=== PATIENT | female | born 1940 | race Hispanic/Latino ===

== ENCOUNTER 2023-11-14 10:09 | Inpatient (IN) | payer OTHER ==
[~2023-11-14] VITALS: Ht 152.4 cm; Wt 62.1 kg
[2023-11-14 11:00] LABS: BASOPHILS # (AUTO) 0.01 K/uL (0.00-0.20); BASOPHILS % (AUTO) 0.2 % (0.0-5.0); EOSINOPHILS # (AUTO) 0.02 K/uL (0.00-0.70); EOSINOPHILS % (AUTO) 0.3 % (0.0-8.0); HEMATOCRIT 35.5 % (36-48); IMMATURE GRANULOCYTE ABSOLUTE 0.04 K/uL (0-1); LYMPHOCYTES # (AUTO) 0.9 K/uL (1.0-4.8); LYMPHOCYTES % (AUTO) 14.8 % (21.0-51.0); MEAN CORPUSCULAR HEMOGLOBIN 31.7 pg (27.0-33.0); MEAN CORPUSCULAR HGB CONC 32.7 g/dL (32.0-36.0); MONOCYTES # (AUTO) 0.6 K/uL (0.1-1.0); MONOCYTES % (AUTO) 10.4 % (3.0-13.0); NEUTROPHILS # (AUTO) 4.4 K/uL (1.8-7.7); NEUTROPHILS % (AUTO) 73.6 % (40.0-77.0); PLATELET COUNT (AUTO) 301 K/uL (130-400); RED BLOOD CELL COUNT(AUTO) 3.66 MIL/uL (4.00-5.50); WHITE BLOOD COUNT (AUTO) 5.9 K/uL (4.8-10.8)
[2023-11-14 11:10] LABS: CREATININE 1.1 mg/dL (0.5-1.5); POTASSIUM 4.1 mmol/L (3.5-5.1)
[2023-11-14 11:14] LABS: ALBUMIN 3.9 g/dL (3.5-5.0); BILIRUBIN,TOTAL 0.4 mg/dL (0.2-1.0); MAGNESIUM 1.7 mg/dL (1.80-2.40); TOTAL PROTEIN, SERUM 7.4 g/dL (6.0-8.3)
[2023-11-14 11:32] LABS: INR <= 0.93 (0.85-1.15); PROTHROMBIN TIME 10.7 SEC (9.6-11.6)
[2023-11-14 11:33] LABS: PARTIAL THROMBOPLASTIN TIME 26.3 SEC (26.3-35.5)
[2023-11-14] MEDS: HYDRALAZINE 20MG/ML VIAL IV ONE ×2 (11:48→12:59)
[2023-11-14] MEDS: MAGNESIUM OXIDE 400 MG TABLET PO ONE (13:19)
[2023-11-14 14:40] LABS: THYROID STIMULATING HORMONE 0.6 uIU/mL (0.36-3.74)
[2023-11-14] MEDS: ONDANSETRON 4MG INJ IVP ONE (16:00)
[2023-11-14] MEDS: ONDANSETRON 4MG INJ ONE (16:01)
[2023-11-14] MEDS ORDERED: DOCUSATE SODIUM 100 MG CAP PO PRN (17:00)
[2023-11-14] MEDS ORDERED: POTASSIUM CHLORIDE 10% ELIXIR 20 MEQ/15 ML UDCUP PO PRN (17:00)
[2023-11-14] MEDS ORDERED: ALPRAZOLAM 0.5 MG TABLET PO PRN (17:00)
[2023-11-14] MEDS ORDERED: POTASSIUM CHLORIDE 20MEQ/100ML 100 ML IV PRN ×2 (17:00)
[2023-11-14] MEDS ORDERED: ACETAMINOPHEN 325 MG TAB PO PRN ×2 (17:00)
[2023-11-14] MEDS ORDERED: HYDRALAZINE 25MG TABLET PO PRN (17:00)
[2023-11-14] MEDS ORDERED: NITROGLYCERIN 0.4 MG SL TAB SL PRN (17:00)
[2023-11-14] MEDS ORDERED: GUAIFENESIN SUGAR-FREE 100 MG/5 ML UDCUP PO PRN (17:00)
[2023-11-14] MEDS ORDERED: POLYETHYLENE GLYCOL 3350 17 GM POWD.PACK PO PRN (17:00)
[2023-11-14] MEDS ORDERED: KCL 20 MEQ ERTAB PO PRN (17:00)
[2023-11-14] MEDS ORDERED: MAG/ALUM/SIMETH 30 ML UDCUP PO PRN (17:00)
[2023-11-14] MEDS ORDERED: LABETALOL 20MG VIAL IV PRN (17:00)
[2023-11-14] MEDS ORDERED: LACTULOSE 20 GM/30 ML UDCUP PO PRN (17:00)
[2023-11-14] MEDS ORDERED: DIPHENHYDRAMINE HCL 25 MG CAPSULE PO PRN (17:00)
[2023-11-14] MEDS ORDERED: GUAIFENESIN-DM 200/20 MG 10 ML PO PRN (17:00)
[2023-11-14] MEDS ORDERED: GABA-529 PO (17:19)
[2023-11-14] MEDS ORDERED: METO25TA6 PO (17:19)
[2023-11-14] MEDS ORDERED: SIMV40TA59 PO (17:19)
[2023-11-14] MEDS ORDERED: LOSA100T59 PO (17:19)
[2023-11-14] MEDS ORDERED: TRAZ-185 PO (17:19)
[2023-11-14] MEDS ORDERED: ONDA-104 PO (17:19)
[2023-11-14] MEDS ORDERED: BACL10TA PO (17:19)
[2023-11-14] MEDS ORDERED: AMLO-257 PO (17:19)
[2023-11-14] MEDS ORDERED: SODI650T PO (17:19)
[2023-11-14 20:07] LABS: APPEARANCE,URINE CLEAR (CLEAR); BILIRUBIN,URINE NEGATIVE (NEGATIVE); COLOR,URINE LIGHT-YELLOW (YELLOW); GLUCOSE, URINE (UA) NEGATIVE (NEGATIVE); KETONES,URINE NEGATIVE (NEGATIVE); LEUKOCYTE ESTERASE ,URINE NEGATIVE Leu/uL (NEGATIVE); NITRATE,URINE NEGATIVE (NEGATIVE); OCCULT BLOOD,URINE SMALL (NEGATIVE); PROTEIN,URINE 300 mg/dL (NEGATIVE); UROBILINOGEN,URINE 0.2 mg/dL (0.2-1.0)
[2023-11-14 20:09] LABS: ADD UA MICROSCOPIC YES
[2023-11-14 20:11] LABS: MUCUS,URINE RARE LPF (None Seen)
[2023-11-14 20:21] LABS: AMPHET/METH SCREEN,URINE NEGATIVE (NEGATIVE); BARBITURATE SCREEN, URINE NEGATIVE (NEGATIVE); BENZODIAZEPINES SCREEN,URINE NEGATIVE (NEGATIVE); CANNABINOID SCREEN,URINE NEGATIVE (NEGATIVE); COCAINE SCREEN,URINE NEGATIVE (NEGATIVE); OPIATE SCREEN,URINE NEGATIVE (NEGATIVE); PHENCYCLIDINE SCREEN,URINE NEGATIVE (NEGATIVE)
[2023-11-14] MEDS: HYDRALAZINE 20MG/ML VIAL IV PRN (20:33)
[2023-11-14] MEDS: FAMOTIDINE 20MG TAB PO SCH (20:33)
[2023-11-14] MEDS: INSULIN HUMULIN R 100 UNIT/ML 3ML SQ SCH (20:58)
[2023-11-14] MEDS ORDERED: FAMOTIDINE 20MG VIAL IV PRN (21:00)
[2023-11-14] MEDS: MAGNESIUM 2GM PREMIX 50ML 50 ML IV PRN (21:05)
[2023-11-15] MEDS: ONDANSETRON 4MG INJ IV PRN (01:22)
[2023-11-15] MEDS: ZOLPIDEM TARTRATE 5 MG TAB PO PRN (02:30)
[2023-11-15 03:39] VITALS: O2SAT 94
[2023-11-15 03:50] VITALS: BP 146/78; PULSE 97; RESP 19
[2023-11-15 06:01] LABS: BASOPHILS # (AUTO) 0.01 K/uL (0.00-0.20); BASOPHILS % (AUTO) 0.1 % (0.0-5.0); IMMATURE GRANULOCYTE ABSOLUTE 0.06 K/uL (0-1); LYMPHOCYTES # (AUTO) 0.7 K/uL (1.0-4.8); LYMPHOCYTES % (AUTO) 6.9 % (21.0-51.0); MEAN CORPUSCULAR HEMOGLOBIN 31.2 pg (27.0-33.0); MEAN CORPUSCULAR HGB CONC 33.2 g/dL (32.0-36.0); MEAN CORPUSCULAR VOLUME 93.9 fL (79-99); MONOCYTES # (AUTO) 0.8 K/uL (0.1-1.0); MONOCYTES % (AUTO) 7.5 % (3.0-13.0); NEUTROPHILS # (AUTO) 8.5 K/uL (1.8-7.7); NEUTROPHILS % (AUTO) 84.9 % (40.0-77.0); PLATELET COUNT (AUTO) 313 K/uL (130-400); RED BLOOD CELL COUNT(AUTO) 3.62 MIL/uL (4.00-5.50); RED CELL DISTRIBUTION WIDTH 14.5 % (11.0-15.5)
[2023-11-15 06:20] LABS: ALBUMIN 3.3 g/dL (3.5-5.0); BILIRUBIN,TOTAL 0.5 mg/dL (0.2-1.0); CREATININE 1.3 mg/dL (0.5-1.5); MAGNESIUM 2.6 mg/dL (1.80-2.40); TOTAL PROTEIN, SERUM 6.7 g/dL (6.0-8.3)
[2023-11-15 08:00] VITALS: BP 150/86; PULSE 92; RESP 20
[2023-11-15] MEDS: AMLODIPINE 5 MG TAB PO SCH (08:56)
[2023-11-15] MEDS: METOPROLOL TARTRATE 25 MG TAB PO SCH (08:56)
[2023-11-15] MEDS: ENOXAPARIN SODIUM 40 MG/0.4 ML SYRINGE SQ SCH (08:56)
[2023-11-15] MEDS: LOSARTAN 100 MG TABLET PO SCH (08:56)
[2023-11-15] MEDS: SODIUM BICARBONATE 650 MG TAB PO SCH (08:56)
[2023-11-15 12:00] VITALS: BP 164/89; PULSE 69; RESP 20
[2023-11-15] MEDS ORDERED: SIMVASTATIN 20 MG TABLET PO SCH (21:00)
== END 2023-11-15 16:40 | disposition left against medical advice (07) | DRG 917 ==
LOC: EDH 10:09 → EDHIP 16:55 → 3CH 11-15 02:24 → EDHIP 11-15 02:26 → 4DH 11-15 03:24
PROVIDERS: ADMIT Internal Medicine; ATTEND Internal Medicine
DX: T42.6X1A Poisoning by other antiepileptic and sedative-hypnotic drugs, accidental (unintentional), initial encounter (principal); G93.41 Metabolic encephalopathy; I16.1 Hypertensive emergency; I10 Essential (primary) hypertension; G89.29 Other chronic pain; E83.52 Hypercalcemia; E83.42 Hypomagnesemia; E11.9 Type 2 diabetes mellitus without complications; M06.8A Other specified rheumatoid arthritis, other specified site; E78.00 Pure hypercholesterolemia, unspecified; Y92.89 Other specified places as the place of occurrence of the external cause; Z53.29 Procedure and treatment not carried out because of patient's decision for other reasons; Z82.49 Family history of ischemic heart disease and other diseases of the circulatory system; Z79.899 Other long term (current) drug therapy
CPT/HCPCS: 36415; 70450; 70551; 71045; 80053; 80305; 81001; 82140; 82607; 82948; 83735; 84443; 85025; 85610; 85730; 87088; 93005; G0378; J0360; J1650; J2405; J3475